=== PATIENT | female | born 1945 | race Caucasian/White ===

== ENCOUNTER 2016-07-11 10:12 | Emergency (ER) | payer MEDICARE, OTHER ==
[~2016-07-11] VITALS: Ht 157.5 cm; Wt 79.5 kg
[2016-07-11 10:16] VITALS: BP 171/88; PULSE 83; RESP 19; TEMP 98.5; O2SAT 97
[2016-07-11] MEDS ORDERED: CHOLESTYRAMINE PO (10:38)
[2016-07-11] MEDS ORDERED: LEVO125T4 PO (10:38)
[2016-07-11] MEDS ORDERED: ATEN25TA PO (10:38)
[2016-07-11] MEDS ORDERED: AMLO10CA PO (10:38)
[2016-07-11] MEDS ORDERED: METF500T PO (10:38)
--- NOTE | 2016-07-11 10:53 | PD ---
HPI Chief Complaint: Cold / Flu Symptoms Time Seen by Provider: 10:26 Travel History International Travel<30 days: No Contact w/Intl Traveler<30days: No Traveled to known affect area: No History of Present Illness HPI Patient is a 70-year-old female who presents to emergency room for evaluation of cough, congestion, sinus pressure, postnasal drip for the past week. Patient reports that she recently came from [place] on Wednesday and began having these symptoms when she arrived. Denies fever/chills. Reports "I just feel warm. " Reports that she has been feeling congested in her sinuses, reports that she has had a slight dry cough, denies any sick contacts. Reports that she also has larygnitis which symptoms have improved. Reports mild frontal headache. Denies any chest pain/sob. Reports "I just don't feel well." Denies abdominal pain, N/V/D. She does admit feeling dehydrated with overall decreased PO intake. PFSH Past Medical History ?: Not Social History Alcohol Use: No Tobacco Use: No Substance Use: No Allergies-Medications (Allergen,Severity, Reaction): Coded Allergies: Alcohol (Verified Allergy, Unknown, 07/11/16) Contrast Media (Verified Allergy, Unknown, 07/11/16) Guaifenesin (Verified Allergy, Unknown, 07/11/16) Penicillin (Verified Allergy, Unknown, 07/11/16) Reported Meds & Prescriptions Reported Meds & Active Scripts Active Levaquin (Levofloxacin) 500 Mg Tab 500 Mg PO DAILY 5 Days Reported [Chloestyram] 40 Gm PO DAILY Amlodipine-Benazepril 10-20 Mg Cap 1 Cap PO DAILY Levothyroxine (Levothyroxine Sodium) 125 Mcg Tab 125 Mcg PO DAILY Atenolol 25 Mg Tab 12.5 Mg PO DAILY Metformin (Metformin HCl) 500 Mg Tab 500 Mg PO BIDPC With meals Review of Systems General / Constitutional: No: Fever, Chills Eyes: No: Visual changes HENT: Positive: Headaches, Lightheadedness, Sore Throat, Rhinitis, Rhinorrhea, Congestion, Earache, No: Nosebleed, Neck Pain Cardiovascular: No: Chest Pain or Discomfort Respiratory: Positive: Cough, Shortness of Breath, No: Wheezing Gastrointestinal: No: Nausea, Vomiting, Abdominal Pain Genitourinary: No: Dysuria Musculoskeletal: No: Pain Skin: No Rash Neurologic: No: Weakness Psychiatric: No: Depression Endocrine: No: Polydipsia Hematologic/Lymphatic: No: Easy Bruising Physical Exam Narrative GENERAL: NAD, nontoxic SKIN: Focused skin assessment warm/dry. HEAD: Atraumatic. Normocephalic. Patient with tenderness to maxillary and frontal sinuses EYES: Pupils equal and round. No scleral icterus. No injection or drainage. EARS: TM with no erythema or edema, no signs of infection ENT: No nasal bleeding or discharge. Mucous membranes pink and moist. NECK: Trachea midline. No JVD. Uvula midline with no swelling, no posterior pharynx edema or injection CARDIOVASCULAR: Regular rate and rhythm. No murmur appreciated. RESPIRATORY: No accessory muscle use. Clear to auscultation. Breath sounds equal bilaterally. GASTROINTESTINAL: Abdomen soft, non-tender, nondistended. Hepatic and splenic margins not palpable. MUSCULOSKELETAL: No obvious deformities. No clubbing. No cyanosis. No edema. NEUROLOGICAL: Awake and alert. No obvious cranial nerve deficits. Motor grossly within normal limits. Normal speech. PSYCHIATRIC: Appropriate mood and affect; insight and judgment normal. Data Data Last Documented VS Vital Signs Date Time Temp Pulse Resp B/P Pulse Ox O2 Delivery O2 Flow Rate FiO2 07/11/16 10:56 68 20 143/74 96 Room Air 07/11/16 10:16 98.5 Orders Influenzae A/B Antigen (07/11/16 10:34) Chest, Pa & Lat (07/11/16 10:34) Group A Rapid Strep Screen (07/11/16 10:34) Strep Culture (Group A) (07/11/16 10:47) [facility] Medical Decision Making Medical Screen Exam Complete: Yes Emergency Medical Condition: Yes Interpretation(s) Vital Signs Date Time Temp Pulse Resp B/P Pulse Ox O2 Delivery O2 Flow Rate FiO2 07/11/16 10:39 18 98 Room Air 07/11/16 10:16 98.5 83 19 171/88 97 Differential Diagnosis influenza, pneumonia, pharyngitis, sinusitis Narrative Course 70 year old female who presents to ER with c/o of sinus congestion, URI, nonproductive cough for 1 week. Patient overall nontoxic on evaluation. No fevers at home. X-ray of chest ordered to evaluate for pneumonia. Will check for influenza as well as strep pharyngitis patient does not want IV or lab work drawn at this time. Microbiology Date/Time Procedure Status Source Growth 07/11/16 10:46 Influenza Types A,B Antigen (ED) - Final Complete Nasal Washing NEGATIVE FOR FLU A AND B ANTIGEN.... 07/11/16 10:47 Group A Streptococcus Screen (ED) - Final Complete Throat 07/11/16 10:47 Group A Streptococcus Screen Received Throat Pending xray of chest: no acute disease patient has increased sinus pressure with cough and congestion, clinically, she presents as an acute sinusitis. patient does have allergy to pcn, will give script for levaquin. signs and symptoms of when to return to ER was reviewed with patient in detail. patient will return to ER if symptoms progress or worsen Diagnosis Primary Impression: Sinusitis, acute Qualified Code: J01.90 - Acute sinusitis, recurrence not specified, unspecified location Additional Impression: URI (upper respiratory infection) Qualified Code: J06.9 - Viral upper respiratory tract infection Patient Instructions: General Instructions Additional Instructions: Please follow up with your primary care doctor in 2-3 days Return to ER if symptoms worsen or progress Please take full course of antibiotics Return to ER as needed Med/Other Pt SpecificInfo: Prescription(s) given Scripts Levofloxacin (Levaquin)500 Mg [id number] Mg PO DAILY 5 Days Ref 0 Prov:Amanda Sagastume DO 07/11/16 Disposition: 01 DISCHARGE HOME Condition: Stable Amanda Sagastume DO Jul 11, 2016 10:53
[2016-07-11 10:56] VITALS: BP 143/74; PULSE 68; RESP 20; O2SAT 96
[2016-07-11] MEDS ORDERED: LEVA500T PO (11:33)
--- NOTE | 2016-07-11 11:55 | RADHPO ---
EXAM DATE/TIME: 07/11/2016 10:46 [facility] COMPARISON: No previous studies available for comparison. INDICATIONS : Short of breath, cough MEDICAL HISTORY : Diabetes mellitus type II. SURGICAL HISTORY : None. ENCOUNTER: Initial ACUITY: 4 - 6 days PAIN SCORE: 0/10 LOCATION: Bilateral chest FINDINGS: PA and lateral views of the chest demonstrate the lungs to be symmetrically aerated without evidence of mass, infiltrate or effusion. The cardiomediastinal contours are unremarkable. Surgical hardware is seen in the cervical spine. CONCLUSION: No acute disease. Lennox Gerard MD on July 11, 2016 at 11:47 Board Certified Radiologist. This report was verified electronically.
== END 2016-07-11 12:22 | disposition home or self-care (01) ==
LOC: PHED 10:12
DX: R05 Cough (principal); J01.90 Acute sinusitis, unspecified; J06.9 Acute upper respiratory infection, unspecified
CPT/HCPCS: 71020; 87081; 87804; 87880; 99283